=== PATIENT | female | born 1980 | race Caucasian/White ===

== ENCOUNTER 2021-06-28 08:17 | Day surgery (SDC) | payer OTHER ==
[~2021-06-28] VITALS: Ht 157.5 cm; Wt 50.0 kg
[~2021-06-28 08:17] MED LIST: SODIUM CHLORIDE 0.9% 1,000 ML ONE
[2021-06-28] MEDS ORDERED: LIDOCAINE/PF 2% 5 ML VIAL IM ONE (08:18)
[2021-06-28] MEDS ORDERED: MIDAZOLAM HCL 2 MG/2 ML VIAL IVP ONE (08:18)
[2021-06-28] MEDS ORDERED: PROPOFOL 1% 20 ML VIAL IVP ONE (08:18)
[2021-06-28] MEDS ORDERED: FentaNYL CITRATE PF 100 MCG/2 ML VIAL IVP ONE (08:18)
[2021-06-28] MEDS ORDERED: SODIUM CHLORIDE 0.9% 1,000 ML IV ONE (08:45)
[2021-06-28 09:04] LABS: COVID AG,FIA SOURCE NASAL SWAB
== END 2021-06-28 11:15 | disposition home or self-care (01) ==
LOC: SURGERY 08:17
PROVIDERS: ATTEND Student in an Organized Health Care Education/Training Program
DX: R11.2 Nausea with vomiting, unspecified (principal); R10.9 Unspecified abdominal pain; K31.9 Disease of stomach and duodenum, unspecified; Z87.01 Personal history of pneumonia (recurrent); Z79.899 Other long term (current) drug therapy; Z98.890 Other specified postprocedural states; Z88.6 Allergy status to analgesic agent; Z88.8 Allergy status to other drugs, medicaments and biological substances
CPT/HCPCS: 43239; 84703; 87426; C1769; C9803; J2250; J2704; J3010; J3490; J7030; 88305; 88312; 88313

== ENCOUNTER 2021-09-27 08:40 | Day surgery (SDC) | payer OTHER ==
[~2021-09-27] VITALS: Ht 157.5 cm; Wt 57.7 kg
[2021-09-27] MEDS ORDERED: SODIUM CHLORIDE 0.9% 1,000 ML IV ONE (09:00)
[2021-09-27 09:30] LABS: COVID AG,FIA SOURCE NASAL SWAB
[2021-09-27] MEDS ORDERED: ONDA-104 PO (10:04)
[2021-09-27] MEDS ORDERED: HYDR-3709 PO (10:04)
[2021-09-27] MEDS ORDERED: CYCL-448 PO (10:04)
[2021-09-27] MEDS ORDERED: PROPOFOL 1% 20 ML VIAL IVP ONE (12:00)
[2021-09-27] MEDS ORDERED: LIDOCAINE/PF 2% 5 ML VIAL IM ONE (12:00)
== END 2021-09-27 12:25 | disposition home or self-care (01) ==
LOC: SURGERY 08:40
PROVIDERS: ATTEND Student in an Organized Health Care Education/Training Program
DX: K62.6 Ulcer of anus and rectum (principal); K64.8 Other hemorrhoids; K52.9 Noninfective gastroenteritis and colitis, unspecified; I10 Essential (primary) hypertension; Z98.890 Other specified postprocedural states; Z88.0 Allergy status to penicillin; Z88.8 Allergy status to other drugs, medicaments and biological substances; Z87.442 Personal history of urinary calculi; G89.29 Other chronic pain; Z79.899 Other long term (current) drug therapy
CPT/HCPCS: 45380; 84703; 87426; C1769; C9803; J2704; J3490

== ENCOUNTER 2022-12-07 07:07 | Day surgery (SDC) | payer OTHER ==
[~2022-12-07] VITALS: Ht 154.9 cm; Wt 57.7 kg
[~2022-12-07 07:07] MED LIST changes: +BUPR-49 PO; +CLON0.5T4 PO; +DIPH-1080 PO; +GALC120P SQ; +HYDR4 PO; +HYOS-27 SL; +IBUP-2077 PO; +LIDO1ADH63 TP; +LINA290C PO; +MAGN400T25 PO; +METO25 PO; +MORP15TA9 PO; +OMEP20CA12 PO; +ONDA8TAB12 PO; +POTA8CAP20 PO; -SODIUM CHLORIDE 0.9% 1,000 ML ONE; +TIZA-211 PO
[2022-12-07] MEDS ORDERED: LIDOCAINE/PF 2% 5 ML VIAL IM ONE (07:08)
[2022-12-07] MEDS ORDERED: PROPOFOL 1% 20 ML VIAL IVP ONE (07:08)
[2022-12-07] MEDS ORDERED: OXYGEN THERAPY IH SCH (10:00)
[2022-12-07] MEDS ORDERED: SODIUM CHLORIDE 0.9% 1,000 ML IV ONE (15:30)
== END 2022-12-07 10:45 | disposition home or self-care (01) ==
LOC: SURGERY 07:07
PROVIDERS: ATTEND Specialist
DX: K29.50 Unspecified chronic gastritis without bleeding (principal); F41.9 Anxiety disorder, unspecified; M81.0 Age-related osteoporosis without current pathological fracture; M19.90 Unspecified osteoarthritis, unspecified site; Z88.0 Allergy status to penicillin; Z98.890 Other specified postprocedural states; Z87.442 Personal history of urinary calculi; Z88.8 Allergy status to other drugs, medicaments and biological substances; Z79.899 Other long term (current) drug therapy
CPT/HCPCS: 43239; 88305; 84703; 88312; 88313; C1769; J2704; J3490